=== PATIENT | male | born 1995 ===

== ENCOUNTER 2021-12-28 01:13 | Emergency (ER) | payer SELFPAY ==
[~2021-12-28] VITALS: Ht 177.8 cm; Wt 81.6 kg
--- NOTE | 2021-12-28 01:14 | NUR ---
TANJA MCMANUS TAKEN TO CHAIR B
[2021-12-28 01:26] VITALS: BP 144/78
--- NOTE | 2021-12-28 01:36 | NUR ---
PATIENT BIB [employer]. PATIENT EXAMINED BY DR. BARTON. PATIENT MEDICALLY CLEARED AND RELEASED IN CUSTODY IN STABLE CONDITION. ORIGINAL PRE-BOOK FORM GIVEN TO OFFICER JANAY, #[id number].
== END 2021-12-28 01:36 ==
LOC: MED 01:13
DX: F12.90 Cannabis use, unspecified, uncomplicated (principal); Z02.89 Encounter for other administrative examinations; Z98.890 Other specified postprocedural states; V89.2XXA Person injured in unspecified motor-vehicle accident, traffic, initial encounter; Y93.89 Activity, other specified; Y92.89 Other specified places as the place of occurrence of the external cause; Y99.8 Other external cause status
CPT/HCPCS: 99283